=== PATIENT | female | born 1975 | race African-American/Black ===

== ENCOUNTER 2019-04-22 01:06 | Emergency (ER) | payer BC ==
[~2019-04-22] VITALS: Ht 167.6 cm; Wt 97.5 kg
[2019-04-22 01:12] VITALS: BP 128/81
--- NOTE | 2019-04-22 03:00 | NUR ---
PATIENT CALLED NO RESPONSE. PATIENT LEFT WITHOUT BEING SEEN BY DR. COOK. NO FURTHER CARE PROVIDED FOR PATIENT. Addendum: 04/22/19 at 0356 by [facility] PATIENT CALLED TO CHECK VITAL SIGNS. NO RESPONSE
--- NOTE | 2019-04-22 03:05 | NUR ---
SECOND CALL , NO RESPONSE
--- NOTE | 2019-04-22 03:10 | NUR ---
THIRD CALL . NO RESPONSE
--- NOTE | 2019-04-22 03:51 | NUR ---
PATIENT RETURNED BACK FROM BUYING FOODS OUTSIDE THE HOSPITAL.VITAL SIGNS RECHECK.
--- NOTE | 2019-04-22 04:55 | NUR ---
PT AMBULATED TO BED 9.
--- NOTE | 2019-04-22 04:55 | NUR ---
43 Y/O FEMALE PRESENTS TO THE ED WITH BOYFRIEND DUE TO FOREIGN OBJECT (CONDOM) STUCK IN VAGINA X4 HOURS. PAIN 0/10. A&O TO PERSON, PLACE, TIME, AND SITUATION. NO FURTHER COMPLAINTS. PT AWAITING FOR DR MON TO ASSESS. CONTINUE TO MONITOR.
[2019-04-22 05:12] VITALS: BP 129/78
--- NOTE | 2019-04-22 05:20 | NUR ---
DR COOK AT BEDSIDE PERFOMING PELVIC EXAM. CONDOM FROM VAGINA SUCCESSFULLY REMOVED. PATIENT TOLERATED PROCEDURE WELL. CONTINUE TO MONITOR.
--- NOTE | 2019-04-22 05:25 | NUR ---
TEST RAN. TEST CAME BACK NEGATIVE.
--- NOTE | 2019-04-22 05:29 | NUR ---
PT CLAY. DID NOT WAIT FOR DISCHARGE PAPERWORK.
[2019-04-22 09:33] LABS: APPEARANCE,URINE CLEAR (CLEAR); BILIRUBIN,URINE NEGATIVE (NEGATIVE); BLOOD, URINE NEGATIVE (NEGATIVE); COLOR,URINE YELLOW (YELLOW); LEUKOCYTE ESTERASE ,URINE TRACE (NEGATIVE); NITRITE, URINE NEGATIVE (NEGATIVE); UGLUCOSE NEGATIVE (NEGATIVE)
[2019-04-22 10:01] LABS: RBC,URINE 0-5 /HPF (0-5)
== END 2019-04-22 05:29 | disposition left against medical advice (07) ==
LOC: MED 01:06
DX: T19.2XXA Foreign body in vulva and vagina, initial encounter (principal); W22.8XXA Striking against or struck by other objects, initial encounter; Y93.89 Activity, other specified; Y92.89 Other specified places as the place of occurrence of the external cause; Y99.8 Other external cause status
CPT/HCPCS: 81001; 81025; 87086; 99283; 99284